=== PATIENT | female | born 1950 | race Caucasian/White ===

== ENCOUNTER → 2019-03-31 12:51 | Outpatient (CLI) | payer BC, SELFPAY ==
--- NOTE | ~2019-03-31 | DEXA_ITS ---
Bone Density Report Name: Nadja Barth Age: 68 Sex: Female Ethnicity: White Date of : 1950 Indication: osteopenia; height loss; Referring Provider: EUFEMIA GONZALEZ Study: Bone densitometry was performed. Exam Date: March 31, 2019 Accession number: [id number] Bone Density: Region BMD T-score Z-score Classification AP Spine (L1-L4) 0.884 -1.5 0.7 Osteopenia Femoral Neck (Left) 0.702 -1.3 0.5 Osteopenia Total Hip (Left) 0.791 -1.2 0.3 Osteopenia Femoral Neck (Right) 0.680 -1.5 0.3 Osteopenia Total Hip (Right) 0.803 -1.1 0.4 Osteopenia Total Hip Mean 0.797 -1.2 0.4 Osteopenia World Health Organization criteria for BMD impression classify patients as: Normal (T-score at or above -1.0), Osteopenia (T-score between -1.0 and -2.5), or Osteoporosis (T-score at or below -2.5). 10-year Fracture Risk(1): Major Osteoporotic Fracture 9.4% Hip Fracture 1.5% Reported Risk Factors: [place] (), Neck BMD=0.680, BMI=22.3 (1) FRAX(R) Version 3.08. Fracture probability calculated for an untreated patient. Fracture probability may be lower if the patient has received treatment. Previous Exams: Region Exam Age BMD T-score BMD Change BMD Change Date g/cm2 vs Baseline vs Previous AP Spine(L1-L4) 03/31/2019 68 0.884 -1.5 0.036* 0.036* 01/02/2015 64 0.848 -1.8 Total Hip(Left) 03/31/2019 68 0.791 -1.2 -0.012 -0.012 01/02/2015 64 0.802 -1.1 Total Hip(Right) 03/31/2019 68 0.803 -1.1 -0.028* -0.028* 01/02/2015 64 0.831 -0.9 *Denotes significance at 95% confidence level, LSC for AP Spine = 0.022 g/cm2, LSC for Total Hip = 0.027 g/cm2 Clinical Information Provided by Patient: Has used the following medications: Vitamin D, MTV Patient maximum height was 66 Menopause Age: 50 Onset of menses at age 10 Number of children 3 Missed period for more than 6 months in a row Impression: The patient has low bone mass, based on the Total Spine T-score. The patient has an estimated ten-year risk of hip fracture of 1.5% and an estimated ten-year risk of major fracture of 9.4%, based on the WHO FRAX algorithm. The BMD for the Total Hip(Right) decreased, changing by -0.028 since the last DXA exam. Discussion: BONE DENSITY IS LOW AT ONE OR MORE SKELETAL SITES. This patient's lowest T-score is low at one or more skeletal sites. It meets the World Health Organization's (WHO) criteria f
--- NOTE | ~2019-03-31 | XR_ITS ---
XR shoulder RT min 2V DATE: 03/31/2019 14:08 INDICATION: Right shoulder pain TECHNIQUE: 4 views COMPARISON: None FINDINGS: Osteopenia. No fracture or dislocation, periosteal reaction or bone destruction or abnormal soft tissue calcifica tion. There is mild degenerative change at the acromioclavicular joint and mild osteoarthritis includ ing mild humeral head spurring at the glenohumeral joint. IMPRESSION: Osteopenia Mild osteoarthritis at the glenohumeral joint Mild degenerative change at the acromioclavicular joint Reviewed, dictated and finalized at location B. YTICS SENIOR MANAGER
--- NOTE | ~2019-03-31 | MM_ITS ---
EXAMINATION: MM screening vic BI w sasha HISTORY: Screening mammogram TECHNIQUE: Craniocaudal and mediolateral oblique 3-D tomosynthesis images were obtained and synthetic 2-D images were generated. CAD analysis was submitted and interpreted. COMPARISON: 01/29/2015 BREAST PARENCHYMAL COMPOSITION: The breasts are heterogeneously dense, which may obscure small masses . FINDINGS: There is no evidence of suspicious mass, calcification, or architectural distortion to sugg est malignancy in either breast. There has been no suspicious interval change. IMPRESSION: 1. No mammographic evidence of malignancy. 2. Recommend routine screening mammography in one year. BI-RADS Category 1: Negative Reviewed, dictated and finalized at location A. H ASSISTANT
== END ==
PROVIDERS: PCP Emergency Medicine; Visit Provider Emergency Medicine
DX: Z12.31 Encounter for screening mammogram for malignant neoplasm of breast (principal); Z78.0 Asymptomatic menopausal state; M25.511 Pain in right shoulder; M19.011 Primary osteoarthritis, right shoulder; M85.89 Other specified disorders of bone density and structure, multiple sites
CPT/HCPCS: 73030; 77063; 77067; 77080

== ENCOUNTER → 2019-12-01 08:31 | Outpatient (CLI) | payer BC, SELFPAY ==
--- NOTE | ~2019-12-01 | MR_ITS ---
EXAMINATION: MR shoulder RT wo con DATE: 12/01/2019 09:15 INDICATION: Right shoulder pain TECHNIQUE: Magnetic resonance imaging (MRI) of the right shoulder was performed without intravenous c ontrast. Sequences included axial PD-weighted FS FSE, coronal oblique PD-weighted FS FSE, coronal obl ique T2-weighted FS FSE, sagittal PD-weighted FS FSE, and sagittal T1-weighted SE. COMPARISON: None. FINDINGS: Coracoacromial arch: The acromion undersurface is curved in morphology (type II). The coracoacromial ligament is normal. M oderate acromioclavicular osteoarthritis. Rotator cuff: Mild supraspinatus and infraspinatus tendinopathy and moderate tendinopathy of the conjoined portion of the tendons without discrete tear. The teres minor tendon is normal. There is also mild subscapula ris tendinopathy without discrete tear. Normal rotator cuff muscle bulk and signal. Biceps tendon, glenoid labrum and glenohumeral cartilage: Long head of the biceps tendon is normal. There is a linear tear at the base of the 10:00-11:00 posit ion of the glenoid labrum. The anteroinferior labrum is small with amorphous increased signal consist ent with degenerative tearing which extends from the 6:00 to the 4:30 position. Chondral ulceration a nd deep fissuring along the caudal half of the glenoid with mild irregularity to the articular cortex and mild subarticular edema. Deep chondral ulceration along the superomedial aspect of the humeral h ead. There is deep fissuring along the medial and anteromedial aspect of the humeral head with underl lis subarticular edema. Small to moderate-sized marginal osteophytes along the anteroinferior clary l head. Fluid: Moderate-sized glenohumeral joint effusion with proportional extension of fluid into the long head bi ceps tendon sheath. There is debris and/or synovitis in the recess of the joint space. No loose osteo chondral bodies. Small amount of fluid in the subacromial/subdeltoid bursa consistent with mild bursi tis. Bones: Bone alignment is normal. No fracture or pathologic marrow replacing process. IMPRESSION: 1. Moderate glenohumeral osteoarthritis with scattered high-grade chondromalacia as well as degenerat layla tearing at the anteroinferior labrum and more well-defined tear at the posterior superior labrum. 2. Mild to moderate rotator cuff tendinopathy most severe at the conjoined portion of the supraspinat us and infraspinatus tendons without discrete tendon tear. 3. Likely reactive moderate sized glenohumeral joint effusion. 4. Moderate acromioclavicular osteoarthritis. 5. Mild subacromial/subdeltoid bursitis. Reviewed, dictated and finalized at location A. IMPRESSION: 1. Moderate glenohumeral osteoarthritis with scattered high-grade chondromalaci a as well as degenerative tearing at the anteroinferior labrum and more well-de fined tear at the posterior superior labrum. 2. Mild to moderate rotator cuff tendinopathy most severe at the conjoined port ion of the supraspinatus and infraspinatus tendons without discrete tendon tear . 3. Likely reactive moderate sized glenohumeral joint effusion. 4. Moderate acromioclavicular osteoarthritis. 5. Mild subacromial/subdeltoid bursitis.
== END ==
PROVIDERS: Visit Provider Nurse Practitioner Family
DX: M19.011 Primary osteoarthritis, right shoulder (principal); M75.51 Bursitis of right shoulder; M25.411 Effusion, right shoulder
CPT/HCPCS: 73221

== ENCOUNTER → 2020-07-02 01:15 | Outpatient (CLI) | payer MEDICARE, SELFPAY ==
[2020-07-03 19:27] LABS: SARS-CoV-2 RNA PCR Negative
== END ==
PROVIDERS: PCP Physician Assistant; Visit Provider Internal Medicine Gastroenterology
DX: Z01.812 Encounter for preprocedural laboratory examination (principal); Z20.822 Contact with and (suspected) exposure to COVID-19
CPT/HCPCS: C9803; U0003; U0005

== ENCOUNTER 2020-07-05 01:45 | Day surgery (SDC) | payer MEDICARE, SELFPAY ==
[2020-06-25 14:04] VITALS: BMI 21.4
[2020-07-05 09:30] VITALS: BP 128/74; PULSE 66; RESP 18; TEMP 36.1; O2SAT 98; BMI 22.1
[2020-07-05] MEDS: LACTATED RINGERS 1,000 ML 150 ML IV CONT (09:42)
--- NOTE | 2020-07-05 10:03 | PM.HPGS ---
History of Present Illness History of Present Illness Consent: Risks, benefits, and alternatives have been discussed and questions answered. Patient agrees to proceed with procedure. Chief complaint: positive cologuard Narrative: Nadja Barth is a 69 year old female with cologuard +, last colonoscopy 10 years ago. Review of Systems Constitutional: Constitutional: Denies headache(s) and Denies weakness Eyes: Eyes: Denies blurry vision ENT: Reports Normal hearing present, Denies headache(s) and Denies neck pain Cardiovascular: Cardiovascular: Denies chest pain and Denies dyspnea Respiratory: Respiratory: Denies dyspnea Gastrointestinal: Gastrointestinal: Reports no additional gastrointestinal complaints Genitourinary: Genitourinary: Denies dysuria Musculoskeletal: Musculoskeletal: Denies neck pain Integumentary/Breasts: Skin/Breast: Denies dry skin Neurologic: Reports Normal hearing present, Denies headache(s) and Denies weakness Psychiatric: Psychiatric: Denies anxiety Endocrine: Endocrine: Denies change in body appearance Hematologic/Lymphatic: Hematologic/Lymphatic: Denies easy bleeding Allergic/Immunologic: Allergic/Immunologic: Denies urticaria PMFSH Past Medical History Medical History (Updated 07/05/20 @ 10:04 by Lew Yu MD) Arthritis of glenohumeral joint History of blood clots Positive colorectal cancer screening using Cologuard test Right shoulder pain Rotator cuff tear Rotator cuff tendinitis Surgical History Surgical History No pertinent past surgical history Family History Family History Other Family history of lung cancer Social History Social History Smoking status: Never smoker Alcohol intake: current Alcohol use details: occasionally Substance use: never Substance use type: does not use Living arrangements: with family Gender identity (if verbalized by the patient): Female Spiritual care concerns: No Meds Home Medications and Allergies Home Medications Medication Instructions Recorded Confirmed Type cholecalciferol (vitamin D3) 50 2,000 unit PO DAILY 04/07/19 06/25/20 History mcg (2,000 unit) tablet sod picosulf 10 mg-magnes 3.5 160 ml PO BID #160 ml 05/29/20 Rx gram-citric 12 gram/160 mL oral solution calcium carbonate [Caltrate 600] 600 mg PO BID 06/25/20 06/25/20 History levothyroxine [Synthroid] 50 mcg PO DAILY 06/25/20 06/25/20 History Allergies Allergy/AdvReac Type Severity Reaction Status Date / Time No Known Allergies Allergy Verified 07/05/20 09:25 Vital Signs Vital Signs - 24 hr 07/05/20 09:30 Temperature 97 F L Pulse Rate 66 Respiratory Rate 18 Blood Pressure 128/74 Pulse Oximetry 98 Exam Const: General: comfortable and no acute distress HENMT: General nose exam: Normal nares present Eyes: General: appearance normal, both eyes and all related structures Neck: Neck: no JVD Resp: Auscultation: clear to auscultation bilaterally Cardio: Rate: regular rate Rhythm: regular rhythm GI: Inspection: non-distended GI Palp: Yes Soft to palpation Skin: General skin exam: normal color Neuro: General: gait normal Speech: normal speech Extrem: General: normal to inspection Psych: Mental Status: mental status grossly normal Assessment and Plan Assessment and plan (1) Positive colorectal cancer screening using Cologuard test: Code(s): R19.5 - Other fecal abnormalities Status: Acute Assessment and Plan: colonoscopy
--- NOTE | 2020-07-05 10:06 | WPDANESEPPF ---
Anes - Initial Pre Proc Eval Procedure: Operation Date: 07/05/20 10:45 Proposed Procedures p Colonoscopy - Lew Yu MD Date/Time: 07/05/20 10:06 Surgeon: Lew Yu MD Pre Op Diagnosis: positive cologuard Patient Data Age: 69 Gender: F Height: 5 ft 4 in Weight: 58.6 kg Last Vital Signs Temp 97 F L 07/05/20 09:30 Pulse 66 07/05/20 09:30 Resp 18 07/05/20 09:30 BP 128/74 07/05/20 09:30 Pulse Ox 98 07/05/20 09:30 Allergies Allergy/AdvReac Type Severity Reaction Status Date / Time No Known Allergies Allergy Verified 07/05/20 09:25 Home Medications Medication Instructions Recorded Confirmed Type cholecalciferol (vitamin D3) 50 2,000 unit PO DAILY 04/07/19 06/25/20 History mcg (2,000 unit) tablet sod picosulf 10 mg-magnes 3.5 160 ml PO BID #160 ml 05/29/20 Rx gram-citric 12 gram/160 mL oral solution calcium carbonate [Caltrate 600] 600 mg PO BID 06/25/20 06/25/20 History levothyroxine [Synthroid] 50 mcg PO DAILY 06/25/20 06/25/20 History Patient hx anesthesia problems: none Family hx anesthesia problems: none PMFSH Past Medical History Medical History (Updated 07/05/20 @ 10:04 by Lew Yu MD) Arthritis of glenohumeral joint History of blood clots Positive colorectal cancer screening using Cologuard test Right shoulder pain Rotator cuff tear Rotator cuff tendinitis Surgical History Surgical History No pertinent past surgical history Family History Family History Other Family history of lung cancer Social History Social History Smoking status: Never smoker Alcohol intake: current Alcohol use details: occasionally Substance use: never Substance use type: does not use Living arrangements: with family Gender identity (if verbalized by the patient): Female Spiritual care concerns: No Anes - Eval Final PreProcedure Day of Procedure 07/05/20 10:06 Patient weight: normal Heart: regular rate and rhythm Lungs: clear to auscultation Airway: Mallampati scale class II Neurological: alert and oriented Last oral intake: >/= 8 hours ASA classification: II Emergent: no Anesthetic plan: proceed Anesthesia type and monitoring: general GIVS and standard monitoring Informed Consent: The patient's anesthetic plan and its attendant risks and benefits were discussed with the patient/family/POA. Questions were solicited and answers provided to the satisfaction of the patient/family/POA.
[2020-07-05 10:36] VITALS: BP 100/70; PULSE 64; RESP 18; O2SAT 99
[2020-07-05 10:46] VITALS: BP 106/59; PULSE 62; RESP 20; O2SAT 99
[2020-07-05 10:56] VITALS: BP 108/64; PULSE 64; RESP 18; O2SAT 100
--- NOTE | 2020-07-05 11:08 | SUR.PHASEII ---
1100: DR SPENCE NOTIFIED PT'S LEFT EYE REDDENED, SWOLLEN SLIGHTLY, BURNING, ITCHING, EYELID SLIGHTLY DROOPY. DR SPENCE ASSESSED AND ENTERED NEW ORDERS. PT STATES UNDERSTANDING.
[2020-07-05] MEDS: PROPARACAINE HCL 0.5% 15 ML OPHTH SOLN 1 DROP EACH EYE (11:19)
[2020-07-05] MEDS: DICLOFENAC SODIUM 0.1% OPHTH SOLN 2.5 ML BOTTLE 1 DROP EACH EYE (11:22)
--- NOTE | 2020-07-05 11:40 | SUR.PHASEII ---
1120: VISINE EYE DROPS NOT GIVEN.
== END 2020-07-05 11:26 | disposition home or self-care (01) ==
PROVIDERS: PCP Physician Assistant; Visit Provider Internal Medicine Gastroenterology
PROC: 0DJD8ZZ Inspection of Lower Intestinal Tract, Via Natural or Artificial Opening Endoscopic (ICD-10-PCS; CPT 45378; principal; 2020-07-05 10:45)
DX: R19.5 Other fecal abnormalities (principal); D12.5 Benign neoplasm of sigmoid colon; K64.8 Other hemorrhoids; E03.9 Hypothyroidism, unspecified
CPT/HCPCS: 45380; 88305; A9270; C9803; J2001; J2704; J7120; U0003; U0005

== ENCOUNTER → 2021-05-08 11:13 | Outpatient (CLI) | payer BC, MEDICARE, SELFPAY ==
--- NOTE | ~2021-05-08 | DEXA_ITS ---
Bone Density Report Name: SAGRARIO ARCHULETA Age: 70 Sex: Female Ethnicity: White Date of : 1950 Indication: osteopenia; height loss; postmenopausal Referring Provider: DAREN, NERY JEFFERSON Study: Bone densitometry was performed. Exam Date: May 08, 2021 Accession number: [id number] Bone Density: Region BMD T-score Z-score Classification AP Spine (L1-L4) 0.865 -1.7 0.6 Osteopenia Femoral Neck (Left) 0.689 -1.4 0.5 Osteopenia Total Hip (Left) 0.772 -1.4 0.2 Osteopenia Femoral Neck (Right) 0.658 -1.7 0.2 Osteopenia Total Hip (Right) 0.803 -1.1 0.5 Osteopenia Total Hip Mean 0.788 -1.3 0.4 Osteopenia World Health Organization criteria for BMD impression classify patients as: Normal (T-score at or above -1.0), Osteopenia (T-score between -1.0 and -2.5), or Osteoporosis (T-score at or below -2.5). 10-year Fracture Risk(1): Major Osteoporotic Fracture 10% Hip Fracture 2.1% Reported Risk Factors: [place] (), Neck BMD=0.658, BMI=21.7 (1) FRAX(R) Version 3.08. Fracture probability calculated for an untreated patient. Fracture probability may be lower if the patient has received treatment. Previous Exams: Region Exam Age BMD T-score BMD Change BMD Change Date g/cm2 vs Baseline vs Previous AP Spine(L1-L4) 05/08/2021 70 0.865 -1.7 0.017 -0.018 03/31/2019 68 0.884 -1.5 0.036* 0.036* 01/02/2015 64 0.848 -1.8 Total Hip(Left) 05/08/2021 70 0.772 -1.4 -0.030* -0.019 03/31/2019 68 0.791 -1.2 -0.012 -0.012 01/02/2015 64 0.802 -1.1 Total Hip(Right) 05/08/2021 70 0.803 -1.1 -0.028* 0.000 03/31/2019 68 0.803 -1.1 -0.028* -0.028* 01/02/2015 64 0.831 -0.9 *Denotes significance at 95% confidence level, LSC for AP Spine = 0.022 g/cm2, LSC for Total Hip = 0.027 g/cm2 Clinical Information Provided by Patient: Has used the following medications: Vitamin D, Calcium Patient maximum height was 65.5 Menopause Age: 50 Onset of menses at age 10 Number of children 3 Missed period for more than 6 months in a row Impression: The patient has low bone mass, based on the Total Spine T-score. The patient has an estimated ten-year risk of hip fracture of 2.1% and an estimated ten-year risk of major fracture of 10%, based on the WHO FRAX algorithm. No significant bone loss was observed. Discussion: BONE DENSITY
== END ==
PROVIDERS: PCP Physician Assistant; Visit Provider Physician Assistant
DX: Z78.0 Asymptomatic menopausal state (principal); M85.88 Other specified disorders of bone density and structure, other site; M85.852 Other specified disorders of bone density and structure, left thigh; M85.851 Other specified disorders of bone density and structure, right thigh
CPT/HCPCS: 77080

== ENCOUNTER → 2021-07-22 15:42 | Outpatient (CLI) | payer BC, MEDICARE, SELFPAY ==
--- NOTE | ~2021-07-22 | US_ITS ---
EXAMINATION: US thyroid DATE: 07/22/2021 15:58 INDICATION: Autoimmune thyroiditis. TECHNIQUE: Multiple ultrasound images of the thyroid were obtained. COMPARISON: None. FINDINGS: The right thyroid lobe measures 3.8 x 2.2 x 1.2 cm. The left thyroid lobe measures 3.7 x 1.3 x 0.8 c m. The thyroid is diffusely heterogeneous and hypoechoic. No discrete nodule. Vascularity is normal. IMPRESSION: 1. Heterogeneous thyroid, likely chronic lymphocytic (Joshua) thyroiditis. Reviewed, dictated and finalized at location B.
== END ==
PROVIDERS: PCP Physician Assistant; Visit Provider Physician Assistant
DX: E06.3 Autoimmune thyroiditis (principal)
CPT/HCPCS: 76536